=== PATIENT | male | born 1930 | race Caucasian/White ===

== ENCOUNTER 2017-04-22 10:19 | Inpatient (IN) ==
[2017-04-22 11:07] LABS: Basophils % 0.1 % (0.0-0.8); Eosinophils # 0.1 10*3/uL (0.0-0.87); Eosinophils % 0.5 % (0.00-10.9); Hematocrit 39.8 VOL% (42.0-52.0); Hemoglobin 12.1 GM/DL (14.0-18.0); Immature Granulocytes % 0.8 %; Immature Granulocytes Absolute 0.16 #; Lymphocytes # 0.7 10*3/uL (1.4-4.0); Lymphocytes % 3.5 % (21.2-54.2); Mean Corpuscular HGB Conc 30.4 GM/DL (32-36); Mean Corpuscular Hemoglobin 24 PG (27-34); Mean Corpuscular Volume 77.9 FL (87-102); Monocytes # 0.7 10*3/uL (0.11-0.8); Monocytes % 3.4 % (1.7-12.7); Neutrophils # 18.9 10*3/uL (1.4-7.4); Neutrophils % 91.7 % (38.7-73.9); Platelet Count 340 T/CUMM (130-400); Red Blood Count 5.11 MC/CUMM (3.8-5.5); Red Cell Distribution Width 17.9 % (9.3-17.3); White Blood Count 20.6 T/CUMM (4-12)
[2017-04-22 11:43] LABS: Alanine Aminotransferase 17 U/L (16-61); Albumin 2.3 G/DL (3.4-5.0); Alkaline Phosphatase 125 U/L (45-117); Aspartate Amino Transferase 12 U/L (0-37); Blood Urea Nitrogen 50 MG/DL (7-18); Calcium 8.8 MG/DL (8.5-10.1); Glucose 93 MG/DL (74-106); Osmolality,Calculated 287.7 MOS/KG (273-304); Potassium 4.6 MMOL/L (3.5-5.1); Sodium 138 MMOL/L (136-145); Total Protein 5.8 G/DL (6.4-8.3); Troponin I Only < 0.015 NG/ML (0.00-0.045)
[2017-04-22] MEDS ORDERED: cefTRIAXone 1,000 MG in SODIUM CHLORIDE 0.9% 100 ML IV STA (11:43)
[2017-04-22] MEDS ORDERED: SODIUM CHLORIDE 0.9% 1,000 ML IV STA (11:44)
[2017-04-22 11:49] LABS: Lymphocytes 2 % (20-55); Macrocytosis 1+; Platelet Estimate Adequate; Segmented Neutrophils 94 % (50-85); Total Cells Counted 100
[2017-04-22 11:50] LABS: Apearance,Urine CLOUDY (Clear); Bacteria,Urine Moderate /HPF (Few); Bilirubin,Urine Negative (Negative); Blood, Urine Moderate mg/dL (Negative); Glucose,Urine (UA) Negative (Negative); Ketones,Urine Negative (Negative); Mucus,Urine Many /LPF (Occasional); Nitrite,Urine Negative (Negative); Protein,Urine 100 MG/DL; RBC,Urine 19 /HPF (0-4); Urine Color Yellow (Yellow); Urine Specific Gravity 1.018 (1.001-1.035); Urine Urobilinogen < 2.0 EU/DL (0.2-1.0); WBC,Urine 722 /HPF (0-6)
[2017-04-22] MEDS ORDERED: cefTRIAXone 1,000 MG VIAL ONE (12:00)
[2017-04-22 12:53] LABS: ABG Base Excess -0.6 MMOL/L (-2.5-2.5); ABG HCO3 23.4 MMOL/L (20-26); ABG Oxygen Saturation 96.2 % (95-100); ABG PCO2 36.1 MM HG (35-48); ABG PH 7.429 (7.35-7.45); ABG PO2 77.8 MM HG (80-95); ABG TCO2 24.5 MMOL/L (23-27)
[2017-04-22] MEDS ORDERED: ALBUTEROL 2.5 MG/3 ML NEB RESP TX PRN (14:18)
[2017-04-22] MEDS ORDERED: ONDANSETRON 4 MG/2 ML VIAL IV PRN (14:18)
[2017-04-22] MEDS: BUDESONIDE/FORMOTEROL 160-4.5 INHALER 6 GM INH SCH ×2 (14:30→21:09)
[2017-04-22] MEDS: SODIUM CHLORIDE 0.9% 1,000 ML IV SCH (14:57)
[2017-04-22] MEDS: MEROPENEM 1,000 MG in SODIUM CHLORIDE 0.9% 50 ML IV SCH (15:29)
[2017-04-22] MEDS: PANTOPRAZOLE 40 MG TABLET PO SCH (15:30)
[2017-04-22] MEDS: methylPREDNISolone SOD SUC 40 MG/1 ML VIAL IV SCH ×2 (15:30→21:08)
[2017-04-22 15:48] LABS: Apearance,Urine CLOUDY (Clear); Bacteria,Urine Moderate /HPF (Few); Bilirubin,Urine Negative (Negative); Blood, Urine Moderate mg/dL (Negative); Glucose,Urine (UA) Negative (Negative); Ketones,Urine 5 mg/dL (Negative); Mucus,Urine Occasional /LPF (Occasional); Nitrite,Urine Negative (Negative); Protein,Urine 30 MG/DL; RBC,Urine 7 /HPF (0-4); Urine Color Yellow (Yellow); Urine Specific Gravity 1.018 (1.001-1.035); Urine Urobilinogen < 2.0 EU/DL (0.2-1.0); WBC,Urine 246 /HPF (0-6)
[2017-04-22] MEDS ORDERED: cloNIDine 0.1 MG TABLET PO ONE (16:00)
[2017-04-22] MEDS: FORMOTEROL 20 MCG/2 ML NEB RESP TX SCH (19:01)
[2017-04-22] MEDS: ALBUTEROL/IPRATROPIUM 3 ML NEB RESP TX SCH (19:01)
[2017-04-22] MEDS: VANCOMYCIN INJ 1,000 MG in SODIUM CHLORIDE 0.9% 250 ML IV SCH (21:08)
[2017-04-23] MEDS: MORPHINE 2 MG/1 ML SYRINGE IV PRN (00:26)
[2017-04-23] MEDS: ALBUTEROL/IPRATROPIUM 3 ML NEB RESP TX SCH ×4 (00:57→19:00)
[2017-04-23] MEDS: methylPREDNISolone SOD SUC 40 MG/1 ML VIAL IV SCH ×4 (05:19→23:07)
[2017-04-23] MEDS: MEROPENEM 1,000 MG in SODIUM CHLORIDE 0.9% 50 ML IV SCH ×2 (05:19→15:23)
[2017-04-23 06:22] LABS: Basophils % 0.1 % (0.0-0.8); Hematocrit 33.4 VOL% (42.0-52.0); Hemoglobin 10.1 GM/DL (14.0-18.0); Immature Granulocytes % 0.9 %; Immature Granulocytes Absolute 0.13 #; Lymphocytes # 0.4 10*3/uL (1.4-4.0); Lymphocytes % 2.5 % (21.2-54.2); Mean Corpuscular HGB Conc 30.2 GM/DL (32-36); Mean Corpuscular Hemoglobin 24 PG (27-34); Mean Corpuscular Volume 78.6 FL (87-102); Mean Platelet Volume 9.5 FL (9.6-12.0); Monocytes # 0.2 10*3/uL (0.11-0.8); Monocytes % 1.1 % (1.7-12.7); Neutrophils # 14.3 10*3/uL (1.4-7.4); Neutrophils % 95.4 % (38.7-73.9); Platelet Count 266 T/CUMM (130-400); Red Blood Count 4.25 MC/CUMM (3.8-5.5); Red Cell Distribution Width 17.7 % (9.3-17.3); White Blood Count 14.9 T/CUMM (4-12)
[2017-04-23 06:46] LABS: Calcium 7.9 MG/DL (8.5-10.1)
[2017-04-23] MEDS: FORMOTEROL 20 MCG/2 ML NEB RESP TX SCH ×2 (06:54→19:01)
[2017-04-23 08:02] LABS: Band Neutrophils 7 % (0-10); Burr Cells 2+; Hypochromasia 1+; Lymphocytes 2 % (20-55); Microcytosis 1+; Platelet Estimate Adequate; Segmented Neutrophils 89 % (50-85); Total Cells Counted 100
[2017-04-23] MEDS: BUDESONIDE/FORMOTEROL 160-4.5 INHALER 6 GM INH SCH ×2 (08:35→21:15)
[2017-04-23] MEDS: cloNIDine 0.1 MG TABLET PO SCH (08:36)
[2017-04-23] MEDS: PANTOPRAZOLE 40 MG TABLET PO SCH (08:36)
[2017-04-23] MEDS: LINACLOTIDE 145 MCG CAPSULE PO SCH (08:36)
[2017-04-23] MEDS: BRIMONIDINE TART BOTH EYES SCH ×4 (08:38→21:15)
[2017-04-23] MEDS: BRINZOLAMIDE BOTH EYES SCH ×4 (08:38→21:15)
[2017-04-23] MEDS ORDERED: PANTOPRAZOLE 40 MG TABLET PO SCH (09:00)
[2017-04-23] MEDS ORDERED: SODIUM CHLORIDE 0.9% 250 ML IV ONE (14:14)
[2017-04-23] MEDS: SODIUM CHLORIDE 0.9% 1,000 ML IV SCH ×2 (14:26→15:24)
[2017-04-23] MEDS: VANCOMYCIN INJ 1,000 MG in SODIUM CHLORIDE 0.9% 250 ML IV SCH (20:33)
[2017-04-23] MEDS: MELATONIN 3 MG TABLET PO PRN (23:07)
[2017-04-24] MEDS: ALBUTEROL/IPRATROPIUM 3 ML NEB RESP TX SCH ×4 (01:43→19:46)
[2017-04-24] MEDS: MORPHINE 2 MG/1 ML SYRINGE IV PRN ×2 (02:00→09:30)
[2017-04-24] MEDS: SODIUM CHLORIDE 0.9% 1,000 ML IV SCH (03:43)
[2017-04-24] MEDS: MEROPENEM 1,000 MG in SODIUM CHLORIDE 0.9% 50 ML IV SCH ×2 (03:43→14:31)
[2017-04-24] MEDS: methylPREDNISolone SOD SUC 40 MG/1 ML VIAL IV SCH ×3 (06:27→23:18)
[2017-04-24 06:33] LABS: Basophils % 0.1 % (0.0-0.8); Hematocrit 34.5 VOL% (42.0-52.0); Hemoglobin 10.4 GM/DL (14.0-18.0); Immature Granulocytes % 0.5 %; Immature Granulocytes Absolute 0.08 #; Lymphocytes # 0.3 10*3/uL (1.4-4.0); Lymphocytes % 1.5 % (21.2-54.2); Mean Corpuscular HGB Conc 30.1 GM/DL (32-36); Mean Corpuscular Hemoglobin 24 PG (27-34); Mean Corpuscular Volume 78.8 FL (87-102); Mean Platelet Volume 9.6 FL (9.6-12.0); Monocytes # 0.5 10*3/uL (0.11-0.8); Monocytes % 2.8 % (1.7-12.7); Neutrophils # 16.1 10*3/uL (1.4-7.4); Neutrophils % 95.1 % (38.7-73.9); Platelet Count 285 T/CUMM (130-400); Red Blood Count 4.38 MC/CUMM (3.8-5.5); White Blood Count 16.9 T/CUMM (4-12)
[2017-04-24 06:43] LABS: Calcium 8.2 MG/DL (8.5-10.1); Osmolality,Calculated 302.6 MOS/KG (273-304); Potassium 4.7 MMOL/L (3.5-5.1)
[2017-04-24] MEDS: FORMOTEROL 20 MCG/2 ML NEB RESP TX SCH ×2 (07:22→19:46)
[2017-04-24 07:47] LABS: Band Neutrophils 2 % (0-10); Lymphocytes 2 % (20-55); Segmented Neutrophils 95 % (50-85); Total Cells Counted 100
[2017-04-24 07:48] LABS: Burr Cells 2+; Hypochromasia 1+; Platelet Estimate Adequate; Target Cells Slight
[2017-04-24] MEDS: cloNIDine 0.1 MG TABLET PO SCH (08:24)
[2017-04-24] MEDS: BUDESONIDE/FORMOTEROL 160-4.5 INHALER 6 GM INH SCH ×2 (08:24→20:49)
[2017-04-24] MEDS: BRINZOLAMIDE BOTH EYES SCH ×4 (08:24→23:14)
[2017-04-24] MEDS: BRIMONIDINE TART BOTH EYES SCH ×4 (08:24→23:14)
[2017-04-24] MEDS: PANTOPRAZOLE 40 MG TABLET PO SCH (08:25)
[2017-04-24] MEDS: LINACLOTIDE 145 MCG CAPSULE PO SCH (08:25)
[2017-04-24] MEDS ORDERED: predniSONE 20 MG TABLET PO SCH (09:00)
[2017-04-24] MEDS: SODIUM CHLORIDE 0.45% 1,000 ML IV SCH (14:34)
[2017-04-24] MEDS: VANCOMYCIN INJ 1,000 MG in SODIUM CHLORIDE 0.9% 250 ML IV SCH (20:46)
[2017-04-25] MEDS: ALBUTEROL/IPRATROPIUM 3 ML NEB RESP TX SCH ×4 (00:49→19:03)
[2017-04-25] MEDS: MEROPENEM 1,000 MG in SODIUM CHLORIDE 0.9% 50 ML IV SCH ×2 (03:25→15:40)
[2017-04-25] MEDS: SODIUM CHLORIDE 0.45% 1,000 ML IV SCH (03:40)
[2017-04-25] MEDS: methylPREDNISolone SOD SUC 40 MG/1 ML VIAL IV SCH ×2 (06:21→17:54)
[2017-04-25 06:45] LABS: Basophils % 0.1 % (0.0-0.8); Hematocrit 33.4 VOL% (42.0-52.0); Hemoglobin 9.8 GM/DL (14.0-18.0); Immature Granulocytes % 0.5 %; Immature Granulocytes Absolute 0.07 #; Lymphocytes # 0.3 10*3/uL (1.4-4.0); Lymphocytes % 2.1 % (21.2-54.2); Mean Corpuscular HGB Conc 29.3 GM/DL (32-36); Mean Corpuscular Hemoglobin 23 PG (27-34); Mean Corpuscular Volume 79.1 FL (87-102); Mean Platelet Volume 9.5 FL (9.6-12.0); Monocytes # 0.4 10*3/uL (0.11-0.8); Monocytes % 3.2 % (1.7-12.7); Neutrophils # 12.8 10*3/uL (1.4-7.4); Neutrophils % 94.1 % (38.7-73.9); Platelet Count 278 T/CUMM (130-400); Red Blood Count 4.22 MC/CUMM (3.8-5.5); Red Cell Distribution Width 18.2 % (9.3-17.3); White Blood Count 13.6 T/CUMM (4-12)
[2017-04-25 07:21] LABS: Band Neutrophils 3 % (0-10); Calcium 8.5 MG/DL (8.5-10.1); Lymphocytes 2 % (20-55); Osmolality,Calculated 302.6 MOS/KG (273-304); Potassium 3.9 MMOL/L (3.5-5.1); Segmented Neutrophils 90 % (50-85); Total Cells Counted 100
[2017-04-25 07:22] LABS: Burr Cells 2+; Hypochromasia 2+; Microcytosis 1+; Platelet Estimate Adequate
[2017-04-25] MEDS: FORMOTEROL 20 MCG/2 ML NEB RESP TX SCH ×2 (07:46→19:03)
[2017-04-25] MEDS: cloNIDine 0.1 MG TABLET PO SCH (09:06)
[2017-04-25] MEDS: BRINZOLAMIDE BOTH EYES SCH ×3 (09:06→22:52)
[2017-04-25] MEDS: PANTOPRAZOLE 40 MG TABLET PO SCH (09:06)
[2017-04-25] MEDS: BUDESONIDE/FORMOTEROL 160-4.5 INHALER 6 GM INH SCH ×2 (09:06→22:07)
[2017-04-25] MEDS: BRIMONIDINE TART BOTH EYES SCH ×3 (09:06→22:52)
[2017-04-25] MEDS: LINACLOTIDE 145 MCG CAPSULE PO SCH (09:13)
[2017-04-25] MEDS ORDERED: INFLUENZA VIRUS VACCINE 0.5 ML SYRINGE IM ONE (15:48)
[2017-04-25] MEDS: MORPHINE 2 MG/1 ML SYRINGE IV PRN ×2 (17:55→22:05)
[2017-04-25] MEDS: MELATONIN 3 MG TABLET PO PRN (22:07)
[2017-04-26] MEDS: ALBUTEROL/IPRATROPIUM 3 ML NEB RESP TX SCH ×2 (00:32→07:09)
[2017-04-26] MEDS: MEROPENEM 1,000 MG in SODIUM CHLORIDE 0.9% 50 ML IV SCH (04:28)
[2017-04-26] MEDS: methylPREDNISolone SOD SUC 40 MG/1 ML VIAL IV SCH (06:26)
[2017-04-26] MEDS: FORMOTEROL 20 MCG/2 ML NEB RESP TX SCH (07:09)
[2017-04-26] MEDS: PANTOPRAZOLE 40 MG TABLET PO SCH (08:31)
[2017-04-26] MEDS: cloNIDine 0.1 MG TABLET PO SCH (08:31)
[2017-04-26] MEDS: LINACLOTIDE 145 MCG CAPSULE PO SCH (08:32)
[2017-04-26] MEDS: BRINZOLAMIDE BOTH EYES SCH (08:32)
[2017-04-26] MEDS: BUDESONIDE/FORMOTEROL 160-4.5 INHALER 6 GM INH SCH (08:32)
[2017-04-26] MEDS: BRIMONIDINE TART BOTH EYES SCH (08:32)
[2017-04-26] MEDS ORDERED: predniSONE 20 MG TABLET PO SCH (09:00)
[2017-04-26] MEDS: MORPHINE 2 MG/1 ML SYRINGE IV PRN (12:11)
[2017-04-26 12:16] VITALS: BP 148/64
== END 2017-04-26 12:13 | disposition hospice, home (50) | DRG 872 ==
LOC: EDUNIT# → N.ED 10:19 → N.EDINP 11:58 → SUATTDRO 11:58 → N.ICU 14:16 → N.5E 04-24 09:43
PROVIDERS: ADMIT Internal Medicine; ATTEND Internal Medicine